=== PATIENT | female | born 1960 | race Caucasian/White ===

== ENCOUNTER 2024-12-03 10:34 | Day surgery (SDC) | payer OTHER, MEDICARE ==
[2024-11-20 10:39] LABS: MEAN PLATELET VOLUME 8.1 FL (7.4-10.4); RED CELL DISTRIBUTION WIDTH 13.6 % (11.5-14.5)
[2024-11-20 10:48] LABS: CREATININE 0.93 MG/DL (0.40-0.90); TOTAL CARBON DIOXIDE 25.9 MMOL/L (24-32); eGFR 61 ML/MIN
[2024-11-20 11:00] LABS: APTT 26 SECONDS (22-32); INR 1.0 INR
[2024-12-03] VITALS (9 sets, daily range): BP systolic 109–134; BP diastolic 57–75; PULSE 51–82; RESP 11–16; TEMP 99.8; O2SAT 93–97
[~2024-12-03] VITALS: Ht 167.6 cm; Wt 78.0 kg
[2024-12-03] MEDS: ceFAZolin 2gm/dext,iso 50mL 50 ML IV ONE (05:30)
[2024-12-03] MEDS: tranexamic acid 1gm/0.7% sal. 100 ML IV ONE (05:30)
[~2024-12-03 10:34] MED LIST: ACET-2006 PO; ASPI-1140 PO; BIOTIN; CHOL100046 PO; CLOB25SO14 TOP; DHEA; DIPH25CA52 PO; FAMO10TA41 PO; IBUP-24 PO; LIDO700A47 TOP; LIVER HEALTH; MELA10TA2 PO; PREGNENOLONE; VITA-268 PO; VITAMIN K; ZINC220C12 PO; [UNRECOGNIZED DRUG - OTHER]; [UNRECOGNIZED DRUG - OTHER]; vancomycin 1,000mg inj ONE
[2024-12-03] MEDS: ringers solution, lacted 1,000 ML IV SCH (10:50)
[2024-12-03] MEDS ORDERED: tranexamic acid 100mg/ml inj. ONE (10:56)
[2024-12-03] MEDS ORDERED: vancomycin 1,000mg inj ONE (10:56)
[2024-12-03] MEDS ORDERED: fentaNYL/PF 50MCG/1 ML 2ML syringe ONE (11:15)
[2024-12-03] MEDS ORDERED: rocuronium 10mg/ml inj IV ONE (11:16)
[2024-12-03] MEDS ORDERED: propofol inj 20 ML IV ONE (11:16)
[2024-12-03] MEDS ORDERED: midazolam 1 mg/ML 2ml injection ONE (11:16)
[2024-12-03] MEDS ORDERED: ROPIVAcaine 0.5% (5mg/ml) 30ml vial ONE (11:17)
[2024-12-03] MEDS ORDERED: fentaNYL/PF 50MCG/1 ML 2ML syringe IV PRN ×2 (12:35)
[2024-12-03] MEDS ORDERED: hydrALAZINE 20mg/ml inj. IV PRN (12:35)
[2024-12-03] MEDS ORDERED: ringers solution, lacted 1,000 ML IV SCH (12:35)
[2024-12-03] MEDS ORDERED: HYDROmorphone/PF 0.2 MG/ML SYRINGE IV PRN ×2 (12:35)
[2024-12-03] MEDS ORDERED: labetalol 20mg/4ml (5mg/ml) syringe IV PRN (12:35)
[2024-12-03] MEDS ORDERED: acetaminophen 1,000mg/100ml IV 100 ML IV PRN (12:35)
[2024-12-03] MEDS ORDERED: ondansetron/PF 4mg/2ml inj ONE (13:15)
[2024-12-03] MEDS ORDERED: dexamethasone sod phosphate 4mg/ml inj. ONE (13:15)
[2024-12-03] MEDS ORDERED: glycopyrrolate 0.2mg/ml inj ONE (13:19)
--- NOTE | 2024-12-03 14:12 | OPERATIVE REPORT ---
Operative Report Providers to ~ Date of Procedure: Dec 03, 2024 Pre-Operative Diagnosis: Right shoulder rotator cuff tear arthropathy Post-Operative Diagnosis SAME as PRE-Op Procedure Performed Right reverse total shoulder arthroplasty Surgeon: Chester Toledo MD Clerk Operator Dr. Willson Anesthesiologist: Sarath Ascencio Type of Anesthesia: General, Regional Findings: Findings consistent with cuff tear arthropathy. There was no tendon on the greater tuberosity which was smoothed out. Complete tear of the upper subscapularis. Tendon quality was poor the subscapularis. Previous biceps tenodesis was noted. Complications None Prosthetics\Implants used: Shoulder innovations size four inset 70 humeral component with a +0 tray and +0 liner. On the glenoid side, a 15 degree augmented base plate was used along with a 33, plus three lateralized glenosphere. Estimated Blood Loss: 100 cc Specimen Removed: None Description of Procedure: The patient is brought to the operating. Placed in the supine position. Preoperative antibiotics of 2 g of Ancef were given. General plus regional anesthesia was performed. The patient was then positioned in a modified beach chair position. Bony prominences were well padded. Bilateral lower extremity SCDs were placed. 1 g of TXA was given as well. The right upper extremity was prepped and draped in the usual sterile fashion. A time-out procedure was performed as per routine identifying the patient side to be operated on, and procedure to be performed. Dr. Willson assisted on this case. Dr. Willson is familiar with my exposure of the proximal humerus which helps facilitate instrumentation. More importantly, he understands how to utilize retractors around the glenoid which gives me excellent exposure to properly placed my glenoid component. His assistance is ordonez for a smooth surgery and a predictable outcome. I began with the right shoulder deltopectoral incision. Cephalic vein was identified. It was taken laterally with the deltoid. I developed the deltopectoral interval and subdeltoid space. The patient had previous surgery so the undersurface of the deltoid was scarred to the proximal humerus so I did careful subperiosteal releases of the deltoid off of the humerus. Retractors were placed. Good exposure was seen. The patient had a previous biceps tenodesis. There was a very deficient subscapularis especially of the superior portion. I placed tag sutures in what remained of the subscapularis and rele ased the inferior portion while protecting the axillary nerve. With the progressive release of the inferior capsule, I was able to dislocate the proximal humerus into the deltopectoral interval. There was a bald greater tuberosity. This is consistent with cuff tear arthropathy. Good exposure of the proximal humerus was obtained. Marginal osteophytes were removed. I estimated the anatomic neck cut and I made a neck cut using a high speed oscillating saw at a proximally 132.5 of neck shaft inclination and 20 of retroversion. I then sounded the humeral canal. The patient's anatomy was quite small. I got up to about a size six sounder I then started with a size four broach in 20 of retroversion. I placed the broach and then had reasonable Press-Fit. I then used a humeral distal femur and followed that with a cut protector to then move onto the glenoid. Exposure of the glenoid was performed. A 360 degree soft tissue release was performed around the glenoid. Any excess labrum and biceps anchor was removed. I had good visualization. Retractors were placed directly on bone and I could clearly visualize all the margins of the glenoid. I then referenced by 3D preoperative plan. The preoperative plan indicated significant superior inclination and retroversion so a 15 degree pin guide was utilized with a maximum correction and a proximally the 10 o'clock position. I placed a bicortical guide pin. This was checked under fluoroscopy. I was happy with the position. I then used a 15 degree augmented Reamer with a maximum correction at approximately the 10 o'clock position. I then reamed for a nice pocket. I followed this with a boss drill. I then impacted a 15 degree augmented base plate with a maximum correction and a proximally 10:00 a.m.. It had good Press- Fit. I placed a center compression screw. It applied good compression and stabilize the base plate. I then placed four peripheral locking screws. The base plate was very stable by the time I was done. I then used a 33 diameter peripheral Reamer. I removed bone so that the glenosphere would sit nicely. I then placed a 33 diameter, plus three lateralized glenosphere. I selected this because I did not want to put excessive tension on the patient's acromion as she already had an os acromiale. I impacted the taper on the glenosphere, tested the taper, and then we impacted the taper. I then moved back to the humerus. I trialed a +0 tray and +0 humeral liner. This had an excellent positive reduction feel. Stable shoulder as I could not dislocate it with the lateral shucking maneuver. Stable range of motion with internal rotation to the belly, external rotation easily to 80, easy overhead motion. Abduction external rotation to 100. Abduction internal rotation to about 40. There was some mild crepitus of the greater tuberosity against the os acromiale which was tipped inferiorly. Fluoroscopy looked good so I decided to go with that construct. Shoulder was dislocated. Trial implants were removed. Humerus was thoroughly irrigated with Irrisept. The subscapularis was too poor to repair so the definitive implant was opened on the back table which was a size four inset 70 humeral component with a +0 tray and +0 liner. I placed some small amount of bone graft adjacent to the implant before impacting for compaction grafting purposes. I impacted the definitive implant and it had excellent rotational and axial stability once it was fully seated. Shoulder was reduced and final fluoroscopy images were obtained. I was happy with the overall construct. Those images were saved. I did an axillary nerve tug test and it was intact. I then irrigated the shoulder thoroughly with IrriSept and then 3 L of pulse lavage irrigation. 1 g of vancomycin powder was placed adjacent to the implant after obtaining good hemostasis. The deltopectoral interval was closed with FiberWire suture. Deep layers were closed with 0 Vicryl suture, subcutaneous layers were closed with 2-0 Vicryl suture and skin was closed with 3-0 Stratafix suture. Final sponge and needle counts were correct. Wound was sealed with a Prineo. Sterile dressings were applied. Arm was protected in an abduction pillow and sling. The patient was thereafter recovered without complications and sent to recovery in good condition. Counts repoted as correct: Yes X-Ray findings: No Foreign body CHESTER TOLEDO MD Dec 03, 2024 14:12
--- NOTE | 2024-12-03 14:21 | RADIOLOGY REPORT ---
EXAM: DI SHOULDER, COMPLETE (MIN 2 VWS) CLINICAL INDICATION: post op TECHNIQUE: DI SHOULDER, COMPLETE (MIN 2 VWS) Comparison: None FINDINGS/IMPRESSION: Right total shoulder arthroplasty. No acute fracture
[2024-12-03] MEDS: ondansetron/PF 4mg/2ml inj IV PRN (14:30)
--- NOTE | 2024-12-03 14:59 | RADIOLOGY REPORT ---
EXAM: DI SHOULDER LTD 1 VIEW ONLY CLINICAL INDICATION: GRASHEY VIEW POST OP TECHNIQUE: DI SHOULDER LTD 1 VIEW ONLY Comparison: DI SHOULDER, COMPLETE (MIN 2 VWS) on DOS: 12/03/24 FINDINGS/IMPRESSION: There is no evidence of acute fracture or dislocation. Right total shoulder arthroplasty.
== END 2024-12-03 15:09 | disposition home or self-care (01) ==
LOC: PAS 10:34
PROVIDERS: ATTEND Specialist
DX: M75.101 Unspecified rotator cuff tear or rupture of right shoulder, not specified as traumatic (principal); M25.511 Pain in right shoulder; G89.18 Other acute postprocedural pain; E66.9 Obesity, unspecified; K21.9 Gastro-esophageal reflux disease without esophagitis; Z98.890 Other specified postprocedural states; Z79.899 Other long term (current) drug therapy; Z68.27 Body mass index [BMI] 27.0-27.9, adult
CPT/HCPCS: 23472; 36415; 64415; 73020; 73030; 80053; 82948; 85025; 85610; 85730; 86885; 86900; 86901; C1776; J1100; J2250; J2405; J2704; J2710; J2795; J3010; J3373; J3490; J7030; J7120; Z7506; Z7508; Z7512; 76000; A4565; A4618; A6449; A6455; A7000; C1713